=== PATIENT | female | born 1960 | race Caucasian/White ===

== ENCOUNTER 2017-07-29 12:53 | Emergency (ER) | payer OTHER ==
[2017-07-29 13:18] VITALS: RESP 18
[2017-07-29] MEDS ORDERED: PROPARACAINE 0.5% OPHTH DROPS 15 ML BTL BOTH EYES STA (14:31)
--- NOTE | 2017-07-29 14:59 | ED ---
General Adult HPI - General Chief complaint: Eye Problems Stated complaint: Blurred Vision, Pressure behind eye Time Seen by Provider: 07/29/17 14:31 Source: patient, RN notes reviewed Mode of arrival: ambulatory Limitations: no limitations - History of Present Illness Initial comments: 56-year-old female presenting with 3 month history of a vision in her right eye and pressure. Patient was sent from the optometry clinic for evaluation. She does report a minor trauma 3 months ago, got a piece of paper in her eye. She no history of eye problems. She does not wear glasses or contacts. Denies drainage. History of coma. Patient has no chronic medical problems. Does report black lines in her visual field from time to time as well as red floaters. No loss of vision, no curtain sensation. - Related Data Home Medications Medication Instructions Recorded Confirmed Albuterol Inhaler [Ventolin Hfa 1 - 2 puff INHALATION RT-Q6H PRN 07/29/17 Inhaler] Cholecalciferol [Vitamin D3] 1,000 unit PO DAILY 07/29/17 07/29/17 Lansoprazole [Prevacid] 30 mg PO DAILY PRN 07/29/17 07/29/17 Multivitamins, Thera [Multivitamin 1 tab PO DAILY 07/29/17 07/29/17 (formulary)] Allergies Allergy/AdvReac Type Severity Reaction Status Date / Time No Known Allergies Allergy Verified 07/29/17 15:04 Review of Systems ROS Statement: Those systems with pertinent positive or pertinent negative responses have been documented in the HPI. ROS Other: All systems not noted in ROS Statement are negative. Past Medical History Past Medical History: Asthma History of Any Multi-Drug Resistant Organisms: None Reported Past Surgical History: Section, Orthopedic Surgery Additional Past Surgical History / Comment(s): nose surgery Past Psychological History: No Psychological Hx Reported Smoking Status: Never smoker Past Alcohol Use History: None Reported Past Drug Use History: None Reported General Exam Limitations: no limitations General appearance: alert, in no apparent distress Head exam: Present: atraumatic, normocephalic Eye exam: Present: normal appearance, PERRL, EOMI, other (Visual alcantara within normal limits) Neck exam: Present: normal inspection. Absent: tenderness, meningismus Respiratory exam: Present: normal lung sounds bilaterally. Absent: respiratory distress Cardiovascular Exam: Present: regular rate, normal rhythm GI/Abdominal exam: Present: soft. Absent: distended, tenderness Extremities exam: Present: normal inspection, full ROM, normal capillary refill. Absent: pedal edema Neurological exam: Present: alert, oriented X3, CN II-XII intact. Absent: motor sensory deficit, reflexes normal Skin exam: Present: warm, dry, intact Course Vital Signs 07/29/17 13:14 Temperature 97.8 F Pulse Rate 82 Respiratory 18 Rate Blood Pressure 168/82 O2 Sat by Pulse 98 Oximetry Medical Decision Making - Medical Decision Making Visual acuity, 20/50 right eye, 20/25 in the left eye, 20/25 both eyes Intraocular pressure, 18 on the right, 20 on the left. Course in examination is unremarkable bilaterally. Extraocular motions intact, visual alcantara normal. Bedside ultrasound is negative for retinal detachment. Funduscopic examination is limited secondary to nondilated pupil. Case is discussed with Dr. Bardales. Findings may be related to epithelial corneal injury. Patient will be started on artificial tears. He will see the patient on Tuesday. Disposition Clinical Impression: Vitreous detachment of right eye, Dry eye of left side Disposition: HOME SELF-CARE Condition: Good Instructions: Eye Lubricant (Into the eye), Visual Floaters (ED) Referrals: Alma Guerra MD [Primary Care Provider] - 1-2 days Siddhartha Bardales MD [STAFF PHYSICIAN] - 1-2 days Time of Disposition: 15:08
[2017-07-29 15:27] VITALS: BP 155/82; PULSE 80; TEMP 98.2
== END 2017-07-29 15:20 | disposition home or self-care (01) ==
LOC: EC 12:53
DX: H43.811 Vitreous degeneration, right eye (principal); H04.122 Dry eye syndrome of left lacrimal gland; Z79.899 Other long term (current) drug therapy
CPT/HCPCS: 99283

== ENCOUNTER 2017-08-31 11:00 | Day surgery (SDC) | payer OTHER ==
[2017-08-30 08:39] VITALS: BMI 37.4
[~2017-08-31 11:00] MED LIST: HYDROmorphone 1 MG/ML 1 ML SYRINGE IVP PRN; LACTATED RINGERS 1,000 ML IV SCH; MOXIFLOXACIN HCL 0.5% DROPS 3 ML BTL OP ONE; ONDANSETRON 4 MG/2 ML VIAL IVP PRN; TETRACAINE 0.5% OPHTH (PF) DROPS 4 ML BTL OP ONE; TIMOLOL 0.5% OPHTH SOLN (PF) 0.2 ML DROPERETTE OP ONE
[2017-08-31 11:40] VITALS: RESP 16; TEMP 97.8
[2017-08-31] MEDS: PHENYLEPHRINE 2.5% OPHTH DRP 2ML OP NR ×3 (11:44→12:01)
[2017-08-31] MEDS: CYCLOPENTOLATE 1% OPHTH SOLN 2 ML BTL OP ONE ×3 (11:47→12:06)
[2017-08-31] MEDS ORDERED: fentaNYL (PF) 50 MCG/ML 2 ML AMP ONE (12:41)
[2017-08-31] MEDS ORDERED: MIDAZOLAM 2 MG/2 ML VIAL ONE (12:41)
[2017-08-31] MEDS ORDERED: BALANCED SALT IRRIG SOLN COMB2 15 ML IRRIG.SOLN INTRAOCULA ONE (12:42)
[2017-08-31] MEDS ORDERED: HYALURONATE SODIUM INTRAOCULAR 1 EACH SYRINGE (12MG/ML) INTRAOCULA ONE (12:42)
[2017-08-31] MEDS ORDERED: TIMOLOL 0.5% OPHTH SOLN (PF) 0.2 ML DROPERETTE LEFT EYE ONE (12:43)
[2017-08-31] MEDS ORDERED: LIDOCAINE 1% (PF) 10MG/ML VIAL SQ ONE (12:43)
[2017-08-31] MEDS ORDERED: MOXIFLOXACIN HCL 0.5% DROPS 3 ML BTL LEFT EYE ONE (12:43)
[2017-08-31] MEDS ORDERED: EPINEPHrine (PF) 0.3 ML in BALANCED SALT IRRIG SOLN COMB2 500 ML IRRIGATION ONE (12:46)
--- NOTE | 2017-08-31 13:04 | P.OP ---
Date of Procedure: 08/31/17 Preoperative Diagnosis: NS & PSC Postoperative Diagnosis: same Procedure(s) Performed: PIOL, OS Implants: PCB00 20.50 Anesthesia: MAC Surgeon: Siddhartha Bardales Estimated Blood Loss (ml): 0 Pathology: none sent Condition: stable Disposition: same day Indications for Procedure: blurry vision Operative Findings: no complications
[2017-08-31 13:52] VITALS: BP 131/65; PULSE 74
--- NOTE | 2017-08-31 21:19 | OP ---
OPERATIVE REPORT DATE OF SERVICE: 08/31/2017. PREOPERATIVE DIAGNOSIS: Nuclear sclerosis and posterior subcapsular cataract. POSTOPERATIVE DIAGNOSIS: Nuclear sclerosis and posterior subcapsular cataract. OPERATION: Phacoemulsification of cataract and intraocular lens implant of the left eye. ESTIMATED BLOOD LOSS: Zero. SPECIMEN TAKEN: None. NARRATIVE: After obtaining the appropriate consent, the patient was brought to the Operating Room where the patient was placed under cardiac monitoring and prepped and draped in the usual sterile manner. At the 5'clock position a 15 degree super sharp blade was used to create a paracentesis followed by instillation of 1% Xylocaine MPF 50:50 mix with BSS into the anterior chamber. This was followed by to stabilize the anterior chamber. At the 3 o'clock position a self-sealing corneal flap incision was created using 2.8 mm jorge keratome. A cystotome was used to initiate a continuous tear capsulorrhexis which was completed with the Utrata forceps. A Binkhorst cannula was used to hydrodissect the lens nucleus followed by hydrodelineation. Phacoemulsification of the lens was performed utilizing phacochop in 6.44 seconds at 7% power. The remaining cortical material was removed using the irrigation aspiration mode followed by additional 1% Xylocaine MPF into the anterior chamber followed by Amvisc viscoelastic to stabilize the capsular bag. An [id number], 20.5 diopter posterior chamber lens was placed into the capsular bag without difficulty. The remaining viscoelastic material was removed from the anterior chamber with the irrigation/aspiration. Balanced salt solution was used to normalize the intraocular pressure. The incision was checked for watertight integrity. The patient then received two drops of 0.5% timolol followed by two drops Vigamox, was lightly patched and shielded in the usual manner. There were no complications from the procedure. The patient tolerated the procedure well and was returned to recovery in good condition. MMODL / IJN: [id number] /
== END 2017-08-31 14:12 | disposition home or self-care (01) ==
LOC: OR 11:00
PROVIDERS: ATTEND Ophthalmology
DX: H25.12 Age-related nuclear cataract, left eye (principal); H25.042 Posterior subcapsular polar age-related cataract, left eye; H25.012 Cortical age-related cataract, left eye; H35.3132 Nonexudative age-related macular degeneration, bilateral, intermediate dry stage; Z96.1 Presence of intraocular lens; K21.9 Gastro-esophageal reflux disease without esophagitis; R51 Headache; H53.8 Other visual disturbances; H43.399 Other vitreous opacities, unspecified eye; J45.909 Unspecified asthma, uncomplicated; Z79.899 Other long term (current) drug therapy
CPT/HCPCS: 81025; 66984; C1780; J2250; J0171; J3010; J2001

== ENCOUNTER → 2023-12-12 | Outpatient (CLI) | payer BC ==
[2023-12-12 09:05] LABS: Partial Thromboplastin Time 24.2 sec (22.0-30.0); Prothrombin Time 10.7 sec (10.0-12.5)
[2023-12-12 11:00] LABS: HCT 50.8 % (37.2-46.3); HGB 16.2 g/dL (12.0-15.0); MCH 28.6 pg (27.0-32.0); MCHC 31.9 g/dL (32.0-37.0); MCV 89.6 FL (80.0-97.0); Mean Platelet Volume 10.2 FL (9.5-12.2); NRBC Per 100 WBC 0 X 10*3/uL (0.00-0.01); Platelet Count 221 X 10*3/uL (140-440); RBC 5.67 X 10*6/uL (4.10-5.20); RDW 12.8 % (11.5-14.5); WBC 4.99 X 10*3/uL (4.50-10.00)
[2023-12-12 11:08] LABS: ALT 25 U/L (8-44); AST 16 U/L (13-35); Albumin 4.5 g/dL (3.8-4.9); Albumin/Globulin Ratio 1.67 Ratio (1.60-3.17); Alkaline Phosphatase 75 U/L (41-126); BUN/Creat Ratio 14.56 Ratio (12.00-20.00); Blood Urea Nitrogen 13.1 mg/dL (9.0-27.0); Calcium 9.8 mg/dL (8.7-10.3); Carbon Dioxide 28.7 mmol/L (21.6-31.8); Chloride 104 mmol/L (96-109); Globulin 2.7 g/dL (1.6-3.3); Glucose 106 mg/dL (70-110); Sodium 142 mmol/L (135-145); Total Bilirubin 0.4 mg/dL (0.3-1.2); Total Protein 7.2 g/dL (6.2-8.2)
== END | disposition home or self-care (01) ==
LOC: LABWHC1 07:59
PROVIDERS: ATTEND Orthopaedic Surgery Sports Medicine
DX: Z01.812 Encounter for preprocedural laboratory examination (principal)
CPT/HCPCS: 36415; 80053; 85027; 85610; 85730; 87070; 93005

== ENCOUNTER 2024-01-05 05:50 | Day surgery (SDC) | payer BC, OTHER ==
[~2024-01-05 05:50] MED LIST changes: -HYDROmorphone 1 MG/ML 1 ML SYRINGE IVP PRN; -LACTATED RINGERS 1,000 ML IV SCH; -MOXIFLOXACIN HCL 0.5% DROPS 3 ML BTL OP ONE; -ONDANSETRON 4 MG/2 ML VIAL IVP PRN; -TETRACAINE 0.5% OPHTH (PF) DROPS 4 ML BTL OP ONE; -TIMOLOL 0.5% OPHTH SOLN (PF) 0.2 ML DROPERETTE OP ONE; +TRANEXAMIC 1,000 MG/100ML-NACL 1,000 MG in SALINE 1 100ML.BAG IVPB PRN
[2024-01-05] MEDS: LACTATED RINGERS 1,000 ML IV SCH ×2 (06:19→14:13)
[2024-01-05 06:43] LABS: Glucose,Whole Blood 97 mg/dL (70-110)
[2024-01-05] MEDS: ACETAMINOPHEN TAB 500 MG TAB PO PRN (06:47)
[2024-01-05] MEDS: MELOXICAM 7.5 MG TAB PO PRN (06:47)
[2024-01-05] MEDS: ONDANSETRON 4 MG/2 ML VIAL IVP PRN (06:47)
[2024-01-05] MEDS: GABAPENTIN 300 MG CAP PO PRN (06:47)
[2024-01-05] MEDS: fentaNYL (PF) 50 MCG/ML 2 ML AMP IVP ONE (06:54)
[2024-01-05] MEDS: MIDAZOLAM 2 MG/2 ML VIAL IVP ONE (06:54)
[2024-01-05] MEDS ORDERED: MIDAZOLAM 2 MG/2 ML VIAL IV PRN (07:00)
[2024-01-05] MEDS ORDERED: SUCCINYLCHOLINE CHLORIDE 200 MG/10 ML VIAL IV ONE (07:26)
[2024-01-05] MEDS ORDERED: GLYCOPYRROLATE 0.2 MG/ML 2 ML VIAL ONE (07:26)
[2024-01-05] MEDS ORDERED: fentaNYL (PF) 50 MCG/ML 2 ML AMP ONE (07:26)
[2024-01-05] MEDS ORDERED: ROPIVACAINE 5 MG/ML 30 ML VIAL ONE (07:26)
[2024-01-05] MEDS ORDERED: PROPOFOL 10 MG/ML 20 ML VIAL IV ONE (07:26)
[2024-01-05] MEDS ORDERED: LIDOCAINE 1% INJ 10MG/ML (20 ML MDV) ONE (07:26)
[2024-01-05] MEDS ORDERED: SODIUM CHLORIDE 0.9% (PF) 10 ML VIAL ONE (07:26)
[2024-01-05] MEDS ORDERED: HYDROmorphone (PF) 1 MG/ML ONE (07:26)
[2024-01-05] MEDS ORDERED: diazePAM 5 MG TAB PO PRN (07:40)
[2024-01-05] MEDS ORDERED: MAGNESIUM HYDROXIDE 2,400 MG/30 ML CUP PO PRN (07:40)
[2024-01-05] MEDS ORDERED: NA PHOS,M-B/NA PHOS,DI-BA 133 ML ENEMA RECTAL PRN (07:40)
[2024-01-05] MEDS ORDERED: NALOXONE 0.4 MG/ML 1 ML VIAL IV PRN (07:40)
[2024-01-05] MEDS ORDERED: bisacodyL 10 MG SUPP RECTAL PRN (07:40)
[2024-01-05] MEDS ORDERED: HYDROmorphone 0.5 MG/0.5 ML SYRINGE IVP PRN ×2 (07:40)
[2024-01-05] MEDS ORDERED: traMADol 50 MG TAB PO PRN (07:40)
[2024-01-05] MEDS ORDERED: HYDROcodone/APAP 7.5-325MG 1 EACH TAB PO PRN (07:45)
[2024-01-05] MEDS: ceFAZolin 3,000 MG in SODIUM CHLORIDE 0.9% IRRIGATIO 3,000 ML IRRIGATION ONE (07:59)
[2024-01-05] MEDS: LACTATED RINGERS 1,000 ML IV ONE (09:13)
[2024-01-05] MEDS: ROPIVACAINE 1,100 MG, SODIUM CHLORIDE 0.9% 500 ML 330 ML, EMPTY PAIN BALL 1 EACH MISCELLANE PRN (09:44)
[2024-01-05] MEDS: HYDROmorphone 0.5 MG/0.5 ML SYRINGE IVP PRN ×2 (09:46→15:36)
--- NOTE | 2024-01-05 10:02 | XR ---
EXAMINATION TYPE: XR knee limited RT DATE OF EXAM: 01/05/2024 9:52 AM CLINICAL INDICATION:Female, 63 years old with history of Evaluation for Postop abnormality and alignm ent; [facility] COMPARISON: None. TECHNIQUE: XR knee limited RT; examined in Frontal, lateral and oblique projections. FINDINGS: Status post total knee arthroplasty changes with hardware in appropriate alignment and in tact. No evidence of fracture. Subcutaneous lucencies and lucencies within the joint consistent with surgical changes. IMPRESSION: Status post total knee arthroplasty changes with hardware intact and appropriate alignment. No fractu res identified.
[2024-01-05] MEDS: droPERidol 5 MG/2 ML VIAL IVP ONE (10:14)
[2024-01-05 10:22] LABS: Glucose,Whole Blood 102 mg/dL (70-110)
--- NOTE | 2024-01-05 10:22 | OP ---
OPERATIVE REPORT DATE OF SERVICE : 01/05/2024 EXPORT COORDINATOR: Aditya Romeo PA-C. PREOPERATIVE DIAGNOSIS: Right knee osteoarthrosis. POSTOPERATIVE DIAGNOSIS: Right knee osteoarthrosis. PROCEDURE PERFORMED: Right total knee arthroplasty. ANESTHESIA: Spinal with sedation. ESTIMATED BLOOD LOSS: 100 mL. TOURNIQUET TIME: 52 minutes at 250 mmHg. COMPLICATIONS: None apparent. DRAINS: None. DISPOSITION: Postanesthesia care unit. INDICATIONS: Maribel is a very pleasant 63-year-old female with longstanding history of right knee pain. History and physical examination are consist with advanced right knee osteoarthrosis. She has been through significant nonoperative management up to this point. Further treatment options were discussed, and she decided to go forward with right total knee arthroplasty. The risks of procedure were discussed with her in detail. These risks include, but are not limited to, risk of infection, nerve damage, bleeding, pain, and a small risk of deep vein thrombosis which could lead to fatal pulmonary embolism. There is also a small risk of loosening of the implant which could require revision operation. The patient understands these risks. All of her questions with regard to the risks of procedure were answered to her satisfaction. Appropriate informed consent was obtained. DESCRIPTION OF THE PROCEDURE: The patient was identified in the preoperative holding area. Surgical site was marked by both the patient and myself. She was given 2 g of Ancef IV prophylactic purposes. She was then transported to the operative suite. She was placed supine on the operating room table. Spinal anesthetic was then administered, dosed per the anesthesia without apparent complication. Examination under anesthesia was then performed. The patient was 5 to 7 degrees shy of full extension. She had 100 degrees of flexion. Medial collateral ligament, lateral collateral ligament, posterior cruciate ligaments were stable. Tourniquet was then placed high on the right upper thigh, well-padded in preparation for surgery. The patient's right lower extremity was then prepped and draped in usual sterile fashion. Standard surgical pause was undertaken to ensure that we were operating the correct site and appropriate preoperative antibiotics were given. All staff in room were in agreement, and we proceeded. The outlines of the patella were marked with a surgical pen. A planned 12-cm vertical incision over the patella was marked with a surgical pen. The leg was then exsanguinated with an Esmarch dressing. The knee was then flexed, and the tourniquet was inflated to 250 mmHg. Total tourniquet time for the procedure was 52 minutes. Incision was then made with a 10-blade scalpel. This dissection was carried down sharply overlying fascia. Great care was taken to minimize the skin flaps. The knee was then exposed using a standard medial parapatellar approach. A small cuff of quadriceps tendon was then left for suturing. She was in quite a bit of valgus preoperatively. A medial release was just as much as to allow for placement of the medial retractor. The medial meniscus was then excised as well. The lateral meniscus was also released anteriorly. Leg was then externally rotated. The patella was everted and the knee was flexed. Retractor was then placed to protect the collateral ligaments. I then proceeded to remove the infrapatellar fat pad. This was excised sharply tangentially with fibers of the patellar tendon. I then proceeded to remove the peripheral osteophytes. This was done with a rongeur. I then proceeded with the distal resection. She did have a flexion contracture. A planned 11-mm resection was then done. Femoral canal was then entered in midline the femur approximately 10 mm anterior to the origin of the posterior cruciate ligament. The charleen was then advanced down the center of the femur and placed intramedullary. Based on the preoperative radiographs, the angle between the anatomic and mechanical axis femur was approximately 4 to 5 degrees. The valgus angle of the distal femoral cutting guide was then set at 4 degrees for the right knee. The distal cutting guide was then advanced over the intramedullary charleen. This was seated firmly against the femur. Then as mentioned planned to take 9 mm off the distal femur. The cutting block was then secured onto the femur with pins. The jig was then removed and distal femoral cut was made through the slot of the block. The pins were then removed and the distal cutting block was removed. The accuracy of the distal femoral cuts was checked with 2 flat bars. I then proceeded with femoral sizing. Posterior referencing sizing guide was held firmly against the resected distal surface of the femur. The posterior condyles were resting on the posterior plane of the guide. The sizing stylus was then placed on the anterior femur. The size was measured as a size 8. I then assessed for femoral rotation. The plan was for 3 degrees of external rotation. Three degrees of external rotation was placed onto the jig. These holes were then marked. I then confirmed the rotation by 3 separate methods. This was done using epicondylar axis as well as Whitesides line and posterior referencing. It was deemed that the external rotation was proper. I then went forward with placement of the femoral cutting block. This was placed over the previously placed pin holes. The Chano wing was then placed on the anterior slots to ensure that we would not notch the anterior femur with the anterior femoral cut. I then proceeded with the anterior femoral cut. This was flushed with the anterior cortex of the femur. The posterior cuts were then made followed by the anterior chamfer cut and then the posterior chamfer cut. Cutting block was then removed. Throughout the resection, the collateral ligaments were protected with retractors. I then placed trial size 8 femur. It was slightly wide but the narrow fit nicely and it flushed with the distal end of the femur. The drill holes were then made. I then proceeded with the tibial cut. I planned for cruciate-retaining knee. The guide was placed and set for varus valgus and for slope. The height was set for approximately 2 mm resection from the lateral tibial plateau, which was the lower side. I was happy with the alignment and the amount of resection. Cutting block was then pinned to the proximal tibia. The alignment charleen was removed. The proximal tibia was resected with a reciprocating saw. Again, this was done with retractors protecting the collateral ligaments as well as the posterior cruciate ligament. I then proceeded to evaluate the flexion extension gaps. A 10-mm block was then placed. The flexion extension gaps were equal. I then proceeded to resection of posterior osteophytes. There were very minimal posterior osteophytes. This was done using a curved osteotome. This resected the posterior osteophytes, and posterior capsular stripping was done off the posterior aspect of the femur at this time. The osteophytes were then removed. I then proceeded with resection of the patella. The thickness of the patella was measured using the caliper. The thickness was 22 mm. The thickness of the anticipated patellar dome was taken into account. Resection was then performed and confirmed to be equal in 4 quadrants using a caliper. Approximately 14 mm of bone remained after resection. A 29 x 8 mm standard patellar trial was then placed. The holes were drilled and the trial was then placed. I then proceeded with sizing tibial plate. A size E tibial plate fit very nicely. I then placed the trial femur, the tibial tray, and the patellar button. A 10-mm trial insert was also placed. The components fit very nicely. She had full extension and flexion. The extension and flexion gaps were equal and stable to both varus and valgus stress. The patella tracked appropriately. The tibial tray rotations were marked with a Bovie. This was externally rotated properly. I then proceeded with tibial preparation. I first drilled the femoral holes and removed the femoral component. The tibial tray was then set for proper external rotation as well as medial lateral placement onto the tibia. It was then pinned into place. I then proceeded with punching the keel. I then decided to proceed with cementing of all our components. The knee was thoroughly irrigated with sterile saline solution via pulse lavage. The lateral genicular artery was identified and cauterized. All blood was removed from the bone of the tibia, femur, and patella with pulsed lavage. I then proceeded with cementing. Two packs of antibiotic bone cement prepared on the back table by hand frame surgical elastic knitter. I then proceeded with cementing the tibia first. The cement was impacted into the keel as well as deeply seated bone. A second coat of cement was then placed. The tibia was then impacted into place. Excess cement was removed with Emily's and Jokers. I then proceeded with cementing the femoral component. The femoral component was also cemented using standard technique. Excess cement was removed. A 10 mm trial insert was then placed in the knee. It was brought into full extension with a constant axial load placed until the cement had hardened. The patellar component was then cemented. This was held firmly with compressive device until the cement had dried. When the cement had dried, the knee was taken out of extension. All excess cement was removed from around the prosthesis. I then trialed the knee with a 10 mm insert. Flexion and extension gaps were appropriate. The knee was stable. It came into full extension. I decided to go forward with the 10 mm Medial Congruent cross-linked polyethylene cruciate-retaining polyethylene insert. Polyethylene was then placed on the tibial tray and locked into place. The knee was then reduced. The knee was again further irrigated with sterile saline solution with antibiotic added. The tourniquet was then deflated. Total tourniquet time for the procedure was 52 minutes at 250 mmHg. Final components were Tom Persona size 8 narrow cruciate-retaining femoral component, size D tibial tray, a 10 mm medial congruent cruciate-retaining polyethylene insert, and a 29 x 8 mm patella. I then proceeded with closure. Again, the knee was thoroughly irrigated. The quadriceps tendon, the medial retinaculum were reapproximated with #2 Ethibond suture. The extensor mechanism was then closed with a running #2 Quill suture. Subcutaneous tissues were then closed with 2-0 Vicryl interrupted suture. The skin was closed with a running 3-0 Quill suture. Dermabond was applied to the incision. Sterile compressive dressings were applied. All sponge and needle counts were deemed correct prior to closure. The patient tolerated the procedure without apparent complication. She was transferred to recovery room in stable condition. MMODL / IJN: [id number] /
--- NOTE | 2024-01-05 13:42 | P.ANPRN ---
Procedure Note - Anesthesia - Nerve Block Performed Right Adductor Canal Infusion Time Out Performed: Yes (0653) Date of Procedure: 01/05/24 Procedure Start Time: 06:54 Procedure Stop Time: 06:59 Location of Patient: PreOp Indication: Acute Post-Operative Pain, Requested by Surgeon Specifically requested for management of pain by DrEvgeny: Emerson Caro Sedation Type: Sedate with meaningful contact maintained Preparation: Sterile Prep, Sterile Dressing Position: Supine Catheter Depth at Skin (cm): 7 Catheter: Indwelling Needle Types: Pajunk Needle Gauge: 18 Ultrasound used to visualize needle placement: Yes Ultrasound used to observe medication spread: Yes Injectate: 0.5% Ropivacaine (see comment for volume) (15cc +5cc nacl pf) Blood Aspirated: No Pain Paresthesia on Injection Noted: No Resistance on Injection: Normal Image Stored and Saved: Yes Events: Uneventful and Well Tolerated
--- NOTE | 2024-01-05 13:43 | P.ANPRN ---
Procedure Note - Anesthesia - Nerve Block Performed Right iPack Single Time Out Performed: Yes (0653) Date of Procedure: 01/05/24 Procedure Start Time: 07:00 Procedure Stop Time: 07:04 Location of Patient: PreOp Indication: Acute Post-Operative Pain, Requested by Surgeon Specifically requested for management of pain by DrEvgeny: Emerson Caro Sedation Type: Sedate with meaningful contact maintained Preparation: Sterile Prep Position: Supine Catheter: None Needle Types: Pajunk Needle Gauge: 21 Ultrasound used to visualize needle placement: Yes Ultrasound used to observe medication spread: Yes Injectate: 0.5% Ropivacaine (see comment for volume) (15cc +5cc nacl pf) Blood Aspirated: No Pain Paresthesia on Injection Noted: No Resistance on Injection: Normal Image Stored and Saved: Yes Events: Uneventful and Well Tolerated
[2024-01-05] MEDS ORDERED: DEXTROSE 50% SYRINGE 50 ML IVP PRN ×2 (15:11)
[2024-01-05 16:11] LABS: Glucose,Whole Blood 101 mg/dL (70-110)
[2024-01-05] MEDS: INSULIN ASPART (NovoLOG) 100 UNIT/ML VIAL SQ SCH (17:09)
[2024-01-05] MEDS: HYDROcodone/APAP 7.5-325MG 1 EACH TAB PO PRN (17:39)
[2024-01-05] MEDS: ASPIRIN 81 MG PO SCH (20:31)
[2024-01-05] MEDS: SENNOSIDES-DOCUSATE SODIUM 1 EACH TAB PO SCH (20:31)
[2024-01-05 22:21] LABS: Glucose,Whole Blood 157 mg/dL (70-110)
[2024-01-06] MEDS: TEMAZEPAM 15 MG CAP PO PRN (03:29)
[2024-01-06 07:10] LABS: Glucose,Whole Blood 129 mg/dL (70-110)
[2024-01-06] MEDS: oxyCODONE-APAP 7.5-325MG 1 EACH TAB PO PRN ×2 (08:15→12:01)
[2024-01-06] MEDS: MULTIVITAMINS, THERA 1 EACH TAB PO SCH ×2 (08:15→14:28)
[2024-01-06] MEDS: DAPAGLIFLOZIN PROPANEDIOL 5 MG TABLET PO SCH (08:15)
[2024-01-06] MEDS: ATORVASTATIN 20 MG TAB PO SCH (08:15)
[2024-01-06] MEDS ORDERED: FISH OIL PO SCH (09:00)
[2024-01-06] MEDS ORDERED: VITAMIN B12 PO SCH (09:00)
[2024-01-06] MEDS ORDERED: VITAMIN D3 PO SCH (09:00)
--- NOTE | 2024-01-06 09:38 | P.PN ---
Subjective Progress Note Date: 01/06/24 Principal diagnosis: Right TKA Patient is seen at bedside this morning. She is postop day #1 from right total knee arthroplasty. She has pain at the surgical site as expected but denies any new complaints. She denies numbness, tingling or calf pain. Review of systems is negative for fever, chills, chest pain, shortness of breath or other Objective - Vital Signs Vital signs: Vital Signs Temp 98.2 F 01/06/24 07:05 Pulse 67 01/06/24 07:05 Resp 17 01/06/24 07:05 BP 106/65 01/06/24 07:05 Pulse Ox 93 L 01/06/24 07:05 FiO2 Intake & Output 01/05/24 01/06/24 01/06/24 18:59 06:59 18:59 Intake Total 1401 Output Total 100 Balance 1301 Weight 90.9 kg Intake: IV 1401 Output: Estimated Blood Loss 100 Other: Voiding Method Bedside Commode # Voids 1 3 - Exam Inspection reveals a benign surgical wound. There is no active bleeding or drainage. Neurovascular status is intact throughout the lower extremity with motor and sensation fully intact. Calf is soft and nontender. 2+ dorsalis pedis pulse and less than 2 second cap refill is present. - Constitutional General appearance: Present: no acute distress - Labs Labs: Abnormal Lab Results - Last 24 Hours (Table) 01/05/24 01/06/24 Range/Units 22:19 07:00 POC Glucose (mg/dL) 157 H 129 H (70-110) mg/dL Assessment and Plan (1) Osteoarthritis of right knee Narrative/Plan: She will continue with routine postop orthopedic protocol including pain management, wound care, PT, DVT prophylaxis and medical management. Expect that she will transfer to home tomorrow Current Visit: Yes Status: Acute Priority: Medium Code(s): M17.11 - UNILATERAL PRIMARY OSTEOARTHRITIS, RIGHT KNEE SNOMED Code(s): 571063478824445 Time with Patient: Less than 30
[2024-01-06 10:17] LABS: Basophils # (A) 0.02 X 10*3/uL (0.00-0.10); Basophils % (A) 0.2 %; Eosinophils # (A) 0.06 X 10*3/uL (0.04-0.35); Eosinophils % (A) 0.7 %; HCT 43.8 % (37.2-46.3); HGB 14.2 g/dL (12.0-15.0); Lymphocytes # (A) 1.86 X 10*3/uL (0.90-5.00); Lymphocytes % (A) 22.2 %; MCH 28.6 pg (27.0-32.0); MCHC 32.4 g/dL (32.0-37.0); MCV 88.1 FL (80.0-97.0); Mean Platelet Volume 10.1 FL (9.5-12.2); Monocytes # (A) 1.31 X 10*3/uL (0.20-1.00); Monocytes % (A) 15.7 %; NRBC Per 100 WBC 0 X 10*3/uL (0.00-0.01); Neutrophils # (A) 5.09 X 10*3/uL (1.80-7.70); Neutrophils % (A) 60.8 %; Platelet Count 188 X 10*3/uL (140-440); RBC 4.97 X 10*6/uL (4.10-5.20); RDW 12.6 % (11.5-14.5); WBC 8.37 X 10*3/uL (4.50-10.00)
--- NOTE | 2024-01-06 11:18 | P.PN ---
Subjective Progress Note Date: 01/06/24 Supplimental IV pain meds being required. No block complication. Objective - Vital Signs Vital signs: Vital Signs Temp 98.2 F 01/06/24 07:05 Pulse 67 01/06/24 07:05 Resp 17 01/06/24 07:05 BP 106/65 01/06/24 07:05 Pulse Ox 93 L 01/06/24 07:05 FiO2 Intake & Output 01/05/24 01/06/24 01/06/24 18:59 06:59 18:59 Intake Total 1401 Output Total 100 Balance 1301 Weight 90.9 kg Intake: IV 1401 Output: Estimated Blood Loss 100 Other: Voiding Method Bedside Commode # Voids 1 3 - Labs CBC & Chem 7: 01/06/24 07:22 Labs: Abnormal Lab Results - Last 24 Hours (Table) 01/05/24 01/06/24 01/06/24 Range/Units 22:19 07:00 07:22 Monocytes # 1.31 H (0.20-1.00) X 10*3/uL POC Glucose (mg/dL) 157 H 129 H (70-110) mg/dL
[2024-01-06 11:55] LABS: Glucose,Whole Blood 143 mg/dL (70-110)
[2024-01-06] MEDS: CALCIUM CARBONATE 500 MG CHEWABLE PO PRN (14:46)
[2024-01-06] MEDS: PANTOPRAZOLE 40 MG TABLET PO SCH (14:46)
--- NOTE | 2024-01-06 15:16 | P.CONS ---
History of Present Illness - Reason for Consult Consult date: 01/06/24 Medical management, status post right knee arthroplasty - History of Present Illness This is a pleasant 63-year-old female who is recently admitted under orthopedic services status post right knee arthroplasty. Patient follows with Dr. Guerra in the outpatient setting with a past medical history of asthma, diabetes mellitus, eye disorder, GERD, hyperlipidemia, osteoarthritis. Patient reports she did undergo presurgical clearance. Patient is seen in follow-up this morning has worked with physical therapy reports having significant pain and will be monitored overnight for improvements in pain. Patient is reporting some acid reflux and will add Tums and recommend Protonix daily. Patient reports she does not normally take a scheduled medication for this in the outpatient setting. Continue pain management and DVT prophylaxis per orthopedics. Will continue monitoring Accu-Cheks before meals and at bedtime and will use sliding scale for now, hemoglobin A1c is 5.9. White count is within normal limits at 8.37 and hemoglobin is 14.2. Patient denies any chest pain, shortness of breath, or palpitations. Patient reports tolerating diet with no reported nausea or vomiting noted. REVIEW OF SYSTEMS: CONSTITUTIONAL: No fever, no malaise, no fatigue. HEENT: No recent visual problems or hearing problems. Denied any sore throat. CARDIOVASCULAR: No chest pain, orthopnea, PND, no palpitations, no syncope. PULMONARY: No shortness of breath, no cough, no hemoptysis. GASTROINTESTINAL: No diarrhea, no nausea, no vomiting, no abdominal pain. Reports heartburn NEUROLOGICAL: No headaches, no weakness, no numbness. HEMATOLOGICAL: Denies any bleeding or petechiae. GENITOURINARY: Denies any burning micturition, frequency, or urgency. MUSCULOSKELETAL/RHEUMATOLOGICAL: reports significant right knee pain and some swelling of the lower extremity ENDOCRINE: Denies any polyuria or polydipsia. The rest of the 14-point review of systems is negative. PHYSICAL EXAMINATION: GENERAL: The patient is alert and oriented x3, not in any acute distress. Well developed, well nourished. Obese HEENT: Pupils are round and equally reacting to light. EOMI. No scleral icterus. No conjunctival pallor. Normocephalic, atraumatic. No pharyngeal erythema. No thyromegaly. CARDIOVASCULAR: S1 and S2 present. No murmurs, rubs, or gallops. PULMONARY: Diminished breath sounds bilaterally otherwise chest is clear to auscultation, no wheezing or crackles. ABDOMEN: Soft, obese. Nontender, nondistended, normoactive bowel sounds. No palpable organomegaly. MUSCULOSKELETAL: No joint swelling or deformity. Right knee surgical dressing is dry and intact, there is some minimal lower extremity swelling noted, nonpit ting EXTREMITIES: No cyanosis, clubbing, or pedal edema. NEUROLOGICAL: Gross neurological examination did not reveal any focal deficits. Diffusely weak SKIN: No rashes. Assessment: Status post right total knee arthroplasty History of diabetes mellitus, type II, [id number], hemoglobin A1c is 5.9 History of GERD History of asthma, not in exacerbation Hyperlipidemia Osteoarthritis Obesity with a BMI of 34.4 GI prophylaxis DVT prophylaxis Full code Plan: Patient was admitted under orthopedic services was evaluated by physical therapy having immense pain and will be monitored overnight for better pain control Patient with incentive spirometer at the bedside encouraged the patient continue using at least 10 times every hour while awake Home medications reviewed and resumed as appropriate Will continue with sliding scale with Accu-Cheks before meals and at bedtime while hospitalized for tight glycemic control. Patient will not continue on insulins on discharge. Patient hemoglobin A1c is 5.9 Encouraged increase activity as tolerated with restrictions per orthopedics Pain management and DVT prophylaxis per orthopedics We will continue to follow with orthopedics during hospitalization. Thank you kindly for this consultation. The impression and plan of care has been dictated by Ema Lynn, Nurse Practitioner as directed. Dr. Ro MD I have performed a history and examination and MDM of this patient, discussed the same with the dictator, and agree with the dictator's assessment and plan as written ,documented as a scribe. Based on total visit time, I have performed more than 50% of the visit. Past Medical History Past Medical History: Asthma, Diabetes Mellitus, Eye Disorder, GERD/Reflux, Hyperlipidemia, Osteoarthritis (OA) Additional Past Medical History / Comment(s): hx bronchial spasms, hx bleeding ulcers 18 yrs ago, no asthma sx in over a year - states inhaler makes it worse. pt admits to being SOB with some activity. macular degeneration History of Any Multi-Drug Resistant Organisms: None Reported Past Surgical History: Section, Orthopedic Surgery, Tubal Ligation Additional Past Surgical History / Comment(s): nasal surgery, D&C, pau knee arthroscopy, cataract bilateral, 3 C sections. colonoscopy Past Anesthesia/Blood Transfusion Reactions: Previous Problems w/ Anesthesia, Motion Sickness Additional Past Anesthesia/Blood Transfusion Reaction / Comm: "shakes and shivers" with epidural, spinal headache - c sections Past Psychological History: No Psychological Hx Reported Smoking Status: Never smoker Past Alcohol Use History: None Reported Past Drug Use History: None Reported - Past Family History Father Family Medical History: Dementia, Diabetes Mellitus Brother(s) Family Medical History: Cancer, Deep Vein Thrombosis (DVT) Additional Family Medical History / Comment(s): lung cancer and cabg. one throat cancer Mother Additional Family Medical History / Comment(s): Marfans syndrome. Medications and Allergies Home Medications Medication Instructions Recorded Confirmed Type Empagliflozin [Jardiance] 10 mg PO DAILY 01/03/24 01/05/24 History Rosuvastatin Calcium 10 mg PO DAILY 01/03/24 01/05/24 History Tirzepatide [Mounjaro] 2.5 mg SQ SA 01/03/24 01/05/24 History Unk Fish Oil 1 tab PO DAILY 01/03/24 01/05/24 History Unk Multi Vitamin 1 tab PO DAILY 01/03/24 01/05/24 History Unk Vitamin D3 1 tab PO DAILY 01/03/24 01/05/24 History Unk Vitamin B12 1 tab PO DAILY 01/03/24 01/05/24 History Aspirin [Adult Low Dose Aspirin EC] 81 mg PO BID #60 tab 01/06/24 Rx Docusate [Colace] 100 mg PO BID #60 capsule 01/06/24 Rx Ondansetron [Zofran] 4 mg PO Q8HR PRN #21 tab 01/06/24 Rx oxyCODONE-APAP 7.5-325MG [Percocet 1 tab PO Q4HR PRN #42 tab 01/06/24 Rx 7.5-325 mg] Allergies Allergy/AdvReac Type Severity Reaction Status Date / Time No Known Allergies Allergy Verified 01/05/24 06:47 Physical Exam Vitals: Vital Signs Temp Pulse Pulse Pulse Resp BP Pulse Ox 01/06/24 07:05 98.2 F 67 17 106/65 93 L 01/06/24 02:27 99.0 F 65 18 125/74 94 L 01/05/24 22:00 98.5 F 65 20 119/69 94 L 01/05/24 20:00 18 01/05/24 15:05 59 L 108/70 100 01/05/24 14:50 67 112/75 100 01/05/24 14:40 97.7 F 61 18 120/72 100 01/05/24 14:35 59 L 116/71 100 01/05/24 14:20 57 L 111/70 100 01/05/24 14:05 65 121/75 100 01/05/24 14:00 97.7 F 61 18 120/72 100 01/05/24 13:50 61 120/72 100 01/05/24 13:35 72 112/73 100 01/05/24 13:20 66 118/76 100 01/05/24 13:05 81 124/74 100 01/05/24 12:00 89 15 108/57 99 01/05/24 11:30 93 16 116/58 98 01/05/24 11:12 89 16 114/56 98 Intake and Output 01/05/24 01/06/24 01/06/24 22:59 06:59 14:59 Other: Voiding Method Bedside Commode # Voids 1 3 Results CBC & Chem 7: 01/06/24 07:22 Labs: Abnormal Lab Results - Last 24 Hours (Table) 01/05/24 01/06/24 01/06/24 Range/Units 22:19 07:00 07:22 Monocytes # 1.31 H (0.20-1.00) X 10*3/uL POC Glucose (mg/dL) 157 H 129 H (70-110) mg/dL
[2024-01-06] MEDS: ONDANSETRON 4 MG/2 ML VIAL IVP PRN (16:07)
[2024-01-06 17:07] LABS: Glucose,Whole Blood 121 mg/dL (70-110)
[2024-01-06 20:51] LABS: Glucose,Whole Blood 112 mg/dL (70-110)
[2024-01-06] MEDS: ACETAMINOPHEN TAB 325 MG TAB PO PRN (20:57)
[2024-01-07 04:50] VITALS: TEMP 99.4
[2024-01-07 06:25] LABS: Glucose,Whole Blood 116 mg/dL (70-110)
[2024-01-07 08:25] VITALS: BP 130/76; PULSE 66; RESP 17
--- NOTE | 2024-01-07 08:27 | P.DS ---
Providers Expected date of discharge: 01/07/24 Attending physician: Emerson Caro Consults: 01/05/24 13:40 Consult Physician Routine Consulting Provider: Jackelyn Lew Consult Reason/Comments: Medical Management Do you want consulting provider notified?: Yes Primary care physician: Alma Guerra - Discharge Diagnosis(es) (1) Status post right knee replacement Current Visit: Yes Status: Acute (2) Osteoarthritis of right knee Current Visit: Yes Status: Acute Priority: Medium Hospital Course: This is a 63-year-old female last seen in our office with complaints of right knee pain. Patient has known history of degenerative arthritis of the right knee and presented to discuss options. After discussion and consideration, patient elected to proceed with a total knee arthroplasty of the right knee. The patient was seen preoperatively and medically cleared for surgery by her primary care physician. The patient was admitted to [facility] and underwent right total knee arthroplasty on 01/05/[address] Caro. The procedure was performed without complications or sequelae. The patient has done well postoperatively. The patient was seen and evaluated at bedside today and denies any new complaints. Pain is reasonably controlled. Dressing is clean dry and intact. Incision looks fine with no erythema or active drainage. Calf is soft and nontender. The patient has full foot and ankle motion without difficulty. Patient's right lower extremity is neurovascular intact. Patient is orthopedically stable for discharge to home today. Pertinent Studies: Laboratory Tests 01/06/24 01/07/24 07:22 06:14 WBC 8.37 RBC 4.97 Hgb 14.2 Hct 43.8 POC Glucose (mg/dL) 116 H Patient Condition at Discharge: Stable Plan - Discharge Summary Discharge Rx Participant: Yes New Discharge Prescriptions: New Aspirin [Adult Low Dose Aspirin EC] 81 mg PO BID #60 tab Docusate [Colace] 100 mg PO BID #60 capsule oxyCODONE-APAP 7.5-325MG [Percocet 7.5-325 mg] 1 tab PO Q4HR PRN #42 tab PRN Reason: Pain Ondansetron [Zofran] 4 mg PO Q8HR PRN #21 tab PRN Reason: Nausea Temazepam [Restoril] 15 mg PO HS PRN 3 Days #3 cap PRN Reason: Insomnia No Action Empagliflozin [Jardiance] 10 mg PO DAILY Unk Fish Oil 1 tab PO DAILY Unk Multi Vitamin 1 tab PO DAILY Rosuvastatin Calcium 10 mg PO DAILY Tirzepatide [Mounjaro] 2.5 mg SQ SA Unk Vitamin B12 1 tab PO DAILY Unk Vitamin D3 1 tab PO DAILY Discharge Medication List Empagliflozin [Jardiance] 10 mg PO DAILY 01/03/24 [History] Rosuvastatin Calcium 10 mg PO DAILY 01/03/24 [History] Tirzepatide [Mounjaro] 2.5 mg SQ SA 01/03/24 [History] Unk Fish Oil 1 tab PO DAILY 01/03/24 [History] Unk Multi Vitamin 1 tab PO DAILY 01/03/24 [History] Unk Vitamin D3 1 tab PO DAILY 01/03/24 [History] Unk Vitamin B12 1 tab PO DAILY 01/03/24 [History] Aspirin [Adult Low Dose Aspirin EC] 81 mg PO BID #60 tab 01/06/24 [Rx] Docusate [Colace] 100 mg PO BID #60 capsule 01/06/24 [Rx] Ondansetron [Zofran] 4 mg PO Q8HR PRN #21 tab 01/06/24 [Rx] oxyCODONE-APAP 7.5-325MG [Percocet 7.5-325 mg] 1 tab PO Q4HR PRN #42 tab 01/06/24 [Rx] Temazepam [Restoril] 15 mg PO HS PRN 3 Days #3 cap 01/07/24 [Rx] Follow up Appointment(s)/Referral(s): Emerson Caro MD [STAFF PHYSICIAN] - 10 Days Activity/Diet/Wound Care/Special Instructions: Weight bear as tolerated May shower after 3 days if no bleeding Keep wound clean and dry Take meds as directed F/U with Dr. Caro in office Discharge Disposition: HOME WITH HOME HEALTH SERVICES
--- NOTE | 2024-01-07 20:47 | P.PN ---
Subjective Progress Note Date: 01/07/24 This is a pleasant 63-year-old female who is recently admitted under orthopedic services status post right knee arthroplasty. Patient follows with Dr. Guerra in the outpatient setting with a past medical history of asthma, diabetes mellitus, eye disorder, GERD, hyperlipidemia, osteoarthritis. Patient reports she did undergo presurgical clearance. Patient is seen in follow-up this morning has worked with physical therapy reports having significant pain and will be monitored overnight for improvements in pain. Patient is reporting some acid reflux and will add Tums and recommend Protonix daily. Patient reports she does not normally take a scheduled medication for this in the outpatient setting. Continue pain management and DVT prophylaxis per orthopedics. Will continue monitoring Accu-Cheks before meals and at bedtime and will use sliding scale for now, hemoglobin A1c is 5.9. White count is within normal limits at 8.37 and hemoglobin is 14.2. Patient denies any chest pain, shortness of breath, or palpitations. Patient reports tolerating diet with no reported nausea or vomiting noted. 01/07/2024 Patient is evaluated today on the medical floor postoperative right knee arthroplasty. Has been up ambulating without difficulty. Pain is managed currently. Is reporting nausea with the pain medication and also had trouble sleeping due to the pain. She has no chest pain, no shortness of breath. She is urinating without difficulty and passing gas. Patient will be discharged home today. Hemodynamically she is stable. Review of Systems Constitutional: Denied any fatigue denied any fever. Cardio vascular: denied any chest pain, palpitations Gastrointestinal: denied any nausea, vomiting, diarrhea Pulmonary: Denied any shortness of breath cough Neurologic denied any new focal deficits All inpatient medications were reviewed and appropriate changes in these medications as dictated in the interval history and assessment and plan. PHYSICAL EXAMINATION: GENERAL: The patient is alert and oriented x3, not in any acute distress. Well developed, well nourished. Obese HEENT: Pupils are round and equally reacting to light. EOMI. No scleral icterus. No conjunctival pallor. Normocephalic, atraumatic. No pharyngeal erythema. No thyromegaly. CARDIOVASCULAR: S1 and S2 present. No murmurs, rubs, or gallops. PULMONARY: Diminished breath sounds bilaterally otherwise chest is clear to auscultation, no wheezing or crackles. ABDOMEN: Soft, obese. Nontender, nondistended, normoactive bowel sounds. No palpable organomegaly. MUSCULOSKELETAL: No joint swelling or deformity. Right knee surgical dressing is dry and intact, there is some minimal lower extremity swelling noted, no npitting EXTREMITIES: No cyanosis, clubbing, or pedal edema. NEUROLOGICAL: Gross neurological examination did not reveal any focal deficits. Diffusely weak SKIN: No rashes. Assessment: Status post right total knee arthroplasty History of diabetes mellitus, type II, [id number], hemoglobin A1c is 5.9 History of GERD History of asthma, not in exacerbation Hyperlipidemia Osteoarthritis Obesity with a BMI of 34.4 GI prophylaxis DVT prophylaxis Full code Plan: Patient was admitted under orthopedic services was evaluated by physical therapy Patient was monitored overnight with improved pain control. Patient with incentive spirometer at the bedside encouraged the patient continue using at least 10 times every hour while awake Home medications reviewed and resumed as appropriate Will continue with sliding scale with Accu-Cheks before meals and at bedtime while hospitalized for tight glycemic control. Patient will not continue on insulins on discharge. Patient hemoglobin A1c is 5.9 Encouraged increase activity as tolerated with restrictions per orthopedics Pain management and DVT prophylaxis per orthopedics We will continue to follow with orthopedics during hospitalization. Thank you kindly for this consultation. Medically patient is stable for discharge. The impression and plan of care has been dictated by Clementina Kowalski, Nurse Practitioner as directed. Dr. Ro MD I have performed a history and physical examination and medical decision making of this patient, discussed the same with the dictator, and agree with the dictators assessment and plan as written, documented as a scribe. Based on total visit time, I have performed more than 50% of this visit. Objective - Vital Signs Vital signs: Vital Signs Temp 99.4 F 01/07/24 07:15 Pulse 66 01/07/24 07:15 Resp 17 01/07/24 07:15 BP 130/76 01/07/24 07:15 Pulse Ox 94 L 01/07/24 07:15 FiO2 Intake & Output 01/06/24 01/07/24 01/07/24 18:59 06:59 18:59 Other: Voiding Method Bedside Commode Toilet # Voids 3 - Labs CBC & Chem 7: 01/06/24 07:22 Labs: Abnormal Lab Results - Last 24 Hours (Table) 01/06/24 01/06/24 01/07/24 Range/Units 17:03 20:45 06:14 POC Glucose (mg/dL) 121 H 112 H 116 H (70-110) mg/dL Assessment and Plan Time with Patient: Less than 30
== END 2024-01-07 12:37 | disposition home health service (06) ==
LOC: OR 05:50 → 4SSUR 09:22 → OR 01-07 12:37
PROVIDERS: ATTEND Orthopaedic Surgery Sports Medicine
DX: M17.11 Unilateral primary osteoarthritis, right knee (principal); M25.761 Osteophyte, right knee; E78.5 Hyperlipidemia, unspecified; E11.9 Type 2 diabetes mellitus without complications; K21.9 Gastro-esophageal reflux disease without esophagitis; J45.909 Unspecified asthma, uncomplicated; Z98.41 Cataract extraction status, right eye; Z98.42 Cataract extraction status, left eye; Z98.891 History of uterine scar from previous surgery; Z82.49 Family history of ischemic heart disease and other diseases of the circulatory system; Z83.3 Family history of diabetes mellitus; Z79.899 Other long term (current) drug therapy
CPT/HCPCS: 97116; 97110; 97162; 64999; 64448; 85025; 83036; 73560; 27447; C1776; C1713; C1751; J2250; J0330; J0690 ×2; J2405 ×3; J2001; J3010; J1170 ×3; J2795; J2704; J1790